=== PATIENT | male | born 1985 | race Caucasian/White ===

== ENCOUNTER → 2023-03-15 16:06 | Outpatient (CLI) | payer BC, SELFPAY ==
--- NOTE | 2023-03-15 16:07 | MR_ITS ---
PROCEDURE INFORMATION: Exam: MR Lumbar Spine Without Contrast Exam date and time: 03/15/2023 4:12 PM Age: 37 years old Clinical indication: Low back pain; Additional info: Low back pain with right thigh acute pain TECHNIQUE: Imaging protocol: Magnetic resonance imaging of the lumbar spine without contrast. COMPARISON: CR [id number] LUMBAR SPINE 5 VIEWS 06/30/2017 10:32 AM FINDINGS: Bones/joints: There is preservation of vertebral alignment. There is preservation of vertebral body heights. No marrow replacing process. Spinal cord: Conus medullaris and cauda equina nerve roots are unremarkable L1-L2: No significant disc bulge or herniation. No severe spinal canal stenosis. No significant neural foraminal narrowing. L2-L3: No significant disc bulge or herniation. No severe spinal canal stenosis. No significant neural foraminal narrowing. L3-L4: No significant disc bulge or herniation. No severe spinal canal stenosis. No significant neural foraminal narrowing. L4-L5: No significant disc bulge or herniation. No severe spinal canal stenosis. No significant neural foraminal narrowing. L5-S1: No significant disc bulge or herniation. No severe spinal canal stenosis. No significant neural foraminal narrowing. Soft tissues: Unremarkable. IMPRESSION: No significant spinal canal or neural foraminal narrowing at any level
--- NOTE | 2023-03-15 16:13 | XR_ITS ---
FINAL REPORT CLINICAL HISTORY: R/O METAL FOREIGN BODY FOR MRI FINDINGS: ORBITS Look up and look down views were obtained. No fracture is identified. The sinuses are clear. No foreign body is identified. IMPRESSION: No acute process. Reviewed, Interpreted and Dictated by Libby Vigil MD Transcribed by Fannie Jordan Authenticated and [facility]
== END ==
LOC: RAD 16:07
PROVIDERS: PCP Family Medicine; Visit Provider Nurse Practitioner Family
DX: M54.50 Low back pain, unspecified (principal); M79.651 Pain in right thigh; R20.0 Anesthesia of skin; H05.53 Retained (old) foreign body following penetrating wound of bilateral orbits; G47.8 Other sleep disorders; G47.9 Sleep disorder, unspecified; R06.83 Snoring; R40.0 Somnolence; E66.01 Morbid (severe) obesity due to excess calories; Z68.41 Body mass index [BMI] 40.0-44.9, adult
CPT/HCPCS: 70200; 72148; 76376